=== PATIENT | male | born 1945 | race Caucasian/White ===

== ENCOUNTER 2017-03-30 21:33 | Emergency (ER) | payer MEDICARE ==
--- NOTE | 2017-03-30 22:24 | ED ---
Syncope/Near Syncope - HPI Summary HPI Summary: Patient presents to the ED with CC of feeling unsteady on his feet for approximately 30 minutes. He states he was sitting in a chair watching TV when he fell asleep. He awoke and stood up to go to the kitchen and felt unsteady. He denies any dizziness or light headedness. Denies falling or LOC, hitting his head, memory loss, confusion, pain, [place], visual changes or weakness. He has never had this happen before. + history of diabetes and HTN. Medications include metformin, glipizide, simvastatin and lisinopril. He does not check his sugars regularly, but has been eating excess amounts of food recently. On arrival to the ED, he feels much improved and no longer is c/o unsteady gait. - History Of Current Complaint Hx Obtained From: Patient Onset/Duration: Sudden Onset Timing: Constant Activity At Onset: At Rest Associated Head Trauma: No Aggravating Factor(s): Nothing Alleviating Factor(s): Spontaneous Resolution Associated Signs And Symptoms: Other - gait disturbance - Risk Factors Cardiac Risk Factors: Hypertension, Diabetes, Elevated Lipids Dysrhythmia Risk Factors: Age Greater Than 45, Underlying CAD Risk Factor(s): Negative <Rosalba May - Last Filed: 03/31/17 01:29> <Devin Bryant - Last Filed: 03/31/17 07:04> - History Of Current Complaint Chief Complaint: EDDizziness Time Seen by Provider: 03/30/17 22:11 - Allergies/Home Medications Allergies/Adverse Reactions: Allergies Allergy/AdvReac Type Severity Reaction Status Date / Time No Known Allergies Allergy Verified 03/30/17 21:55 PMH/Surg Hx/FS Hx/Imm Hx Previously Healthy: Yes - Immunization History Date of Influenza Vaccine: 12/2016 Hx Pertussis Vaccination: No Immunizations Up to Date: Unable to Obtain/Confirm Infectious Disease History: No Infectious Disease History: Denies: Traveled Outside the [place] in Last 30 Days - Social History Occupation: Employed Full-time Lives: With Family Alcohol Use: Rare Substance Use Type: Reports: None Smoking Status (MU): Never Smoked Tobacco <Rosalba May - Last Filed: 03/31/17 01:29> Review of Systems Constitutional: Negative Eyes: Negative ENT: Negative Gastrointestinal: Negative Genitourinary: Negative Positive: no symptoms reported, see HPI Musculoskeletal: Negative Neurological: Other - unsteady gait Psychological: Normal All Other Systems Reviewed And Are Negative: Yes <Rosalba May - Last Filed: 03/31/17 01:29> Physical Exam Triage Information Reviewed: Yes Vital Signs On Initial Exam: Initial Vitals Temp Pulse Resp BP Pulse Ox 98.3 F 89 18 182/74 95 03/30/17 21:48 03/30/17 21:48 03/30/17 21:48 03/30/17 21:48 03/30/17 21:48 Vital Signs Reviewed: Yes Appearance: Positive: Well-Appearing, Well-Nourished Skin: Positive: Warm, Skin Color Reflects Adequate Perfusion Head/Face: Positive: Normal Head/Face Inspection Eyes: Positive: EOMI, RAMONA ENT: Positive: Normal ENT inspection Neck: Positive: Supple, No Lymphadenopathy Respiratory/Lung Sounds: Positive: Clear to Auscultation, Breath Sounds Present Cardiovascular: Positive: RRR, Pulses are Symmetrical in both Upper and Lower Extremities Musculoskeletal: Positive: Normal, Strength/ROM Intact Neurological: Positive: Speech Normal Psychiatric: Positive: Normal, Affect/Mood Appropriate AVPU Assessment: Alert <Rosalba May - Last Filed: 03/31/17 01:29> Vital Signs On Initial Exam: Initial Vitals Temp Pulse Resp BP Pulse Ox 36.8 C 89 18 182/74 95 03/30/17 21:48 03/30/17 21:48 03/30/17 21:48 03/30/17 21:48 03/30/17 21:48 <Devin Bryant - Last Filed: 03/31/17 07:04> Diagnostics - Vital Signs Vital Signs Temp Pulse Resp BP Pulse Ox 03/30/17 22:11 87 18 94 03/30/17 22:10 162/75 03/30/17 21:48 98.3 F 89 18 182/74 95 - Laboratory Result Diagrams: 03/30/17 22:38 03/30/17 22:38 Lab Statement: Any lab studies that have been ordered have been reviewed, and results considered in the medical decision making process. <Rosalba May - Last Filed: 03/31/17 01:29> - Vital Signs Vital Signs Temp Pulse Resp BP Pulse Ox 03/31/17 02:00 36.6 C 86 16 164/83 95 03/31/17 01:57 164/83 03/31/17 01:56 82 96 03/31/17 01:30 81 148/84 94 03/31/17 01:00 76 148/74 94 03/31/17 00:30 78 141/72 94 03/31/17 00:01 80 137/75 95 03/31/17 00:00 81 94 03/30/17 23:55 83 95 03/30/17 23:54 154/75 03/30/17 23:30 83 19 177/102 94 03/30/17 23:00 82 18 167/106 94 03/30/17 22:30 83 20 157/79 95 03/30/17 22:11 87 18 94 03/30/17 22:10 162/75 03/30/17 21:48 36.8 C 89 18 182/74 95 - Laboratory Lab Results: Lab Results 03/30/17 03/30/17 03/30/17 Range/Units 22:38 22:38 22:38 WBC 9.0 (3.5-10.8) 10^3/ul RBC 4.57 (4.0-5.4) 10^6/ul Hgb 14.5 (14.0-18.0) g/dl Hct 42 (42-52) % MCV 91 (80-94) fL MCH 32 H (27-31) pg MCHC 35 (31-36) g/dl RDW 13 (10.5-15) % Plt Count 175 (150-450) 10^3/ul MPV 7 L (7.4-10.4) um3 Neut % (Auto) 72.1 (38-83) % Lymph % (Auto) 16.3 L (25-47) % [place] % (Auto) 8.8 (1-9) % Eos % (Auto) 2.0 (0-6) % Baso % (Auto) 0.8 (0-2) % Absolute Neuts (auto) 6.5 (1.5-7.7) 10^3/ul Absolute Lymphs (auto) 1.5 (1.0-4.8) 10^3/ul Absolute Monos (auto) 0.8 (0-0.8) 10^3/ul Absolute Eos (auto) 0.2 (0-0.6) 10^3/ul Absolute Basos (auto) 0.1 (0-0.2) 10^3/ul Absolute Nucleated RBC 0.01 10^3/ul Nucleated RBC % 0.1 INR (Anticoag Therapy) (0.89-1.11) Sodium 131 L (133-145) mmol/L Potassium 3.9 (3.5-5.0) mmol/L Chloride 98 L (101-111) mmol/L Carbon Dioxide 25 (22-32) mmol/L Anion Gap 8 (2-11) mmol/L BUN 19 (6-24) mg/dL Creatinine 0.92 (0.67-1.17) mg/dL Est GFR ( Amer) 103.7 (>60) Est GFR (Non-Af Amer) 80.6 (>60) BUN/Creatinine Ratio 20.7 H (8-20) Glucose 360 H (70-100) mg/dL Lactic Acid 2.5 H* (0.5-2.0) mmol/L Calcium 8.9 (8.6-10.3) mg/dL Magnesium 1.6 L (1.9-2.7) mg/dL Total Bilirubin 0.50 (0.2-1.0) mg/dL AST 19 (13-39) U/L ALT 25 (7-52) U/L Alkaline Phosphatase 54 (34-104) U/L Total Creatine Kinase 85 (10-223) U/L Troponin I 0.00 (<0.04) ng/mL Total Protein 6.8 (6.4-8.9) g/dL Albumin 3.8 (3.2-5.2) g/dL Globulin 3.0 (2-4) g/dL Albumin/Globulin Ratio 1.3 (1-3) TSH 2.15 (0.34-5.60) mcIU/mL Urine Color Urine Appearance Urine pH (5-9) Ur Specific [place] (1.010-1.030) Urine Protein (Negative) Urine Ketones (Negative) Urine Blood (Negative) Urine Nitrate (Negative) Urine Bilirubin (Negative) Urine Urobilinogen (Negative) Ur Leukocyte Esterase (Negative) Urine Glucose (Negative) 03/30/17 03/30/17 Range/Units 22:38 23:52 WBC (3.5-10.8) 10^3/ul RBC (4.0-5.4) 10^6/ul Hgb (14.0-18.0) g/dl Hct (42-52) % MCV (80-94) fL MCH (27-31) pg MCHC (31-36) g/dl RDW (10.5-15) % Plt Count (150-450) 10^3/ul MPV (7.4-10.4) um3 Neut % (Auto) (38-83) % Lymph % (Auto) (25-47) % [place] % (Auto) (1-9) % Eos % (Auto) (0-6) % Baso % (Auto) (0-2) % Absolute Neuts (auto) (1.5-7.7) 10^3/ul Absolute Lymphs (auto) (1.0-4.8) 10^3/ul Absolute Monos (auto) (0-0.8) 10^3/ul Absolute Eos (auto) (0-0.6) 10^3/ul Absolute Basos (auto) (0-0.2) 10^3/ul Absolute Nucleated RBC 10^3/ul Nucleated RBC % INR (Anticoag Therapy) 0.95 (0.89-1.11) Sodium (133-145) mmol/L Potassium (3.5-5.0) mmol/L Chloride (101-111) mmol/L Carbon Dioxide (22-32) mmol/L Anion Gap (2-11) mmol/L BUN (6-24) mg/dL Creatinine (0.67-1.17) mg/dL Est GFR ( Amer) (>60) Est GFR (Non-Af Amer) (>60) BUN/Creatinine Ratio (8-20) Glucose (70-100) mg/dL Lactic Acid (0.5-2.0) mmol/L Calcium (8.6-10.3) mg/dL Magnesium (1.9-2.7) mg/dL Total Bilirubin (0.2-1.0) mg/dL AST (13-39) U/L ALT (7-52) U/L Alkaline Phosphatase (34-104) U/L Total Creatine Kinase (10-223) U/L Troponin I (<0.04) ng/mL Total Protein (6.4-8.9) g/dL Albumin (3.2-5.2) g/dL Globulin (2-4) g/dL Albumin/Globulin Ratio (1-3) TSH (0.34-5.60) mcIU/mL Urine Color Straw Urine Appearance Clear Urine pH 6.0 (5-9) Ur Specific [place] 1.011 (1.010-1.030) Urine Protein Negative (Negative) Urine Ketones Negative (Negative) Urine Blood Negative (Negative) Urine Nitrate Negative (Negative) Urine Bilirubin Negative (Negative) Urine Urobilinogen Negative (Negative) Ur Leukocyte Esterase Negative (Negative) Urine Glucose 3+(>=500 mg/dl) H (Negative) Result Diagrams: 03/30/17 22:38 03/30/17 22:38 Lab Statement: Any lab studies that have been ordered have been reviewed, and results considered in the medical decision making process. <Devin Bryant - Last Filed: 03/31/17 07:04> Course/Dx Course Of Treatment: Labs WNL including Trop. EKG normal. Patient noted to have glucose in the urine and hyperglycemia at 360 with no other acute findings. He is given 2L fluids. He is discharged with reutnr precautions and strongly encouraged to follow up with his PCP. He agrees to this plan. <Rosalba May - Last Filed: 03/31/17 01:29> <Devin Bryant - Last Filed: 03/31/17 07:04> - Diagnoses Provider Diagnoses: Hyperglycemia Discharge <Rosalba May - Last Filed: 03/31/17 01:29> <Devin Bryant - Last Filed: 03/31/17 07:04> - Discharge Plan Condition: Stable Disposition: HOME Patient Education Materials: Diabetic Hyperglycemia (ED) Referrals: Alyson Krishnamurthy MD [Primary Care Provider] - Additional Instructions: Please check your sugars at home Follow up with your PCP MINDY for evaluation and follow up If you develop any worsening or changing symptoms, return to the ED Watch your diet and avoid any sugary or starchy foods.
[2017-03-30 22:56] LABS: ABS Basophils 0.1 10^3/ul (0-0.2); ABS Eosinophils 0.2 10^3/ul (0-0.6); ABS Lymphocytes 1.5 10^3/ul (1.0-4.8); ABS Monocytes 0.8 10^3/ul (0-0.8); ABS Neutrophils 6.5 10^3/ul (1.5-7.7); ABS Nucleated RBC 0.01 10^3/ul; Hematocrit 42 % (42-52); Hemoglobin 14.5 g/dl (14.0-18.0); Lymphocyte % 16.3 % (25-47); Mean Corpuscular HGB Conc 35 g/dl (31-36); Mean Corpuscular Hemoglobin 32 pg (27-31); Mean Corpuscular Volume 91 fL (80-94); Mean Platelet Volume 7 um3 (7.4-10.4); Nucleated Red Blood Cells % 0.1; Platelet Count 175 10^3/ul (150-450); Red Blood Count 4.57 10^6/ul (4.0-5.4); Red Cell Distribution Width 13 % (10.5-15)
[2017-03-30 23:02] LABS: INR 0.95 (0.89-1.11)
[2017-03-30 23:13] LABS: EGFR Non-African American 80.6 (>60)
[2017-03-30] MEDS ORDERED: NS 0.9% 1000 ML* 1,000 ML IV ONE (23:45)
[2017-03-30] MEDS: NS 0.9% 1000 ML* 1,000 ML IV ONE (23:55)
[2017-03-31 00:01] LABS: Urine Appearance Clear; Urine Blood Negative (Negative); Urine Color Straw; Urine Ketones Negative (Negative); Urine Protein Negative (Negative); Urine Specific Gravity 1.011 (1.010-1.030); Urine Urobilinogen Negative (Negative)
[2017-03-31 04:17] VITALS: BP 164/83
== END 2017-03-31 02:00 | disposition home or self-care (01) ==
LOC: ED 21:33
DX: E11.65 Type 2 diabetes mellitus with hyperglycemia (principal); Z86.79 Personal history of other diseases of the circulatory system
CPT/HCPCS: 36415; 80053; 81003; 82550; 83605; 83735; 84443; 84484; 85025; 85610; 93005; 99284

== ENCOUNTER 2018-02-13 10:36 | Emergency (ER) | payer MEDICARE ==
--- NOTE | 2018-02-13 11:36 | ED ---
Adult Trauma - HPI Summary HPI Summary: 72 year old male with past medical history of hypertension presents with back pain after fall today. He states he slipped off a ladder at 12 feet and fell onto his back. He also bumped his head. He denies any loss consciousness. He is not on blood thinners. He admits to some neck pain. He denies any chest pain shortness breath or bowel pain. He has abrasions noted to his left gonzalez and head. He denies any lower extremity pain. No upper extremity pain either. Has not taking anything for her symptoms. Was able to ambulate afterward. patient admits he is little bit dizzy. No change in vision. He states mostly landed on his side. - History of Current Complaint Chief Complaint: EDTraumaMultiple Stated Complaint: FALL/HEAD INJURY/BACK INJURY Time Seen by Provider: 02/13/18 11:23 Pain Intensity: 8 - Allergy/Home Medications Allergies/Adverse Reactions: Allergies Allergy/AdvReac Type Severity Reaction Status Date / Time No Known Allergies Allergy Verified 02/13/18 11:05 PMH/Surg Hx/FS Hx/Imm Hx Endocrine/Hematology History: Denies: Hx Anticoagulant Therapy Cardiovascular History: Reports: Hx Hypertension - Immunization History Date of Influenza Vaccine: 12/2016 Infectious Disease History: No Infectious Disease History: Denies: Traveled Outside the [place] in Last 30 Days - Family History Known Family History: Positive: Hypertension - Social History Alcohol Use: Rare Substance Use Type: Reports: None Smoking Status (MU): Never Smoked Tobacco Review of Systems Negative: Fever Negative: Chest Pain Negative: Shortness Of Breath Positive: Myalgia - back pain All Other Systems Reviewed And Are Negative: Yes Physical Exam Triage Information Reviewed: Yes Vital Signs On Initial Exam: Initial Vitals Temp Pulse Resp BP Pulse Ox 97.7 F 87 16 160/86 96 02/13/18 10:51 02/13/18 10:51 02/13/18 10:51 02/13/18 10:51 02/13/18 10:51 Vital Signs Reviewed: Yes Appearance: Positive: Well-Appearing Skin: Positive: Warm, Dry, Other - abrasion to left leg and head Head/Face: Positive: Normal Head/Face Inspection, Other - abrasion to top of head Eyes: Positive: Normal, Conjunctiva Clear ENT: Positive: Normal ENT inspection, Pharynx normal, TMs normal Neck: Positive: Other: - tenderness neck and upper back Respiratory/Lung Sounds: Positive: Clear to Auscultation, Breath Sounds Present Cardiovascular: Positive: Normal, RRR Abdomen Description: Positive: Nontender, Soft Bowel Sounds: Positive: Present Musculoskeletal: Positive: Strength/ROM Intact - left leg, Limited @ - back, Other - good pulses, nontender left lef Neurological: Positive: Sensory/Motor Intact, Alert, Oriented to Person Place, Time, CN Intact II-III Psychiatric: Positive: Normal - [place] Coma Scale Best Eye Response: 4 - Spontaneous Best Motor Response: 6 - Obeys Commands Best Verbal Response: 5 - Oriented Coma Scale Total: 15 Diagnostics - Vital Signs Vital Signs Temp Pulse Resp BP Pulse Ox 02/13/18 10:51 97.7 F 87 16 160/86 96 - Laboratory Result Diagrams: 02/13/18 11:31 02/13/18 11:31 Lab Statement: Any lab studies that have been ordered have been reviewed, and results considered in the medical decision making process. - CT brain CT Interpretation: No Acute Changes CT Interpretation Completed By: Radiologist cervical CT Interpretation: No Acute Changes - IMPRESSION: No fracture of the cervical spine is noted. 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 There is there is calcification posterior to the spinous process of C5. This may be from old injury. 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 The possibility of ankylosing spondylitis should BE considered. No definite fracture is identified. CT Interpretation Completed By: Radiologist Adult Trauma Course/Dx - Course Course Of Treatment: 72 year old male with past medical history of hypertension presents with back pain after fall today. He states he slipped off a ladder at 12 feet and fell onto his back. He also bumped his head. He denies any loss consciousness. He is not on blood thinners. He admits to some neck pain. He denies any chest pain shortness breath or bowel pain. He has abrasions noted to his left gonzalez and head. He denies any lower extremity pain. No upper extremity pain either. Has not taking anything for her symptoms. Was able to ambulate afterward. patient admits he is little bit dizzy. No change in vision. He states mostly landed on his side. on exam abrasion to head. normal neuro exam. tenderness thoracic back. CT brain normal. cervical neck normal. ct thoracic show no fracture but does shows ankylosis. told to keep abrasions clean. gave concussion precautions. told to follow up with primary. patient understand and agrees with plan. - Diagnoses Differential Diagnosis/HQI/PQRI: Positive: Abrasion(s), Contusion(s), Fracture Provider Diagnoses: Fall, Head injury, Back pain, Abrasions of multiple sites Discharge - Sign-Out/Discharge Documenting (check all that apply): Patient Departure - Discharge Plan Condition: Good Disposition: HOME Patient Education Materials: Head Injury (ED), Back Pain (ED) Referrals: Alyson Krishnamurthy MD [Primary Care Provider] - Additional Instructions: keep abrasions clean, wash with soap and water place ice on the area Take tyenlol every 6 hours as needed for pain Follow up with primary within 5 days Return to ED if develop any new or worsening symptoms - Billing Disposition and Condition Condition: GOOD Disposition: Home
[2018-02-13 11:44] LABS: ABS Basophils 0 10^3/ul (0-0.2); ABS Eosinophils 0.1 10^3/ul (0-0.6); ABS Lymphocytes 1.1 10^3/ul (1.0-4.8); ABS Monocytes 0.9 10^3/ul (0-0.8); ABS Neutrophils 11.2 10^3/ul (1.5-7.7); ABS Nucleated RBC 0 10^3/ul; Eosinophil % 0.4 % (0-6); Hematocrit 45 % (42-52); Hemoglobin 15.7 g/dl (14.0-18.0); Lymphocyte % 8.2 % (25-47); Mean Corpuscular HGB Conc 35 g/dl (31-36); Mean Corpuscular Hemoglobin 32 pg (27-31); Mean Corpuscular Volume 91 fL (80-94); Nucleated Red Blood Cells % 0.2; Platelet Count 207 10^3/ul (150-450); Red Blood Count 4.92 10^6/ul (4.00-5.40); Red Cell Distribution Width 13 % (10.5-15); White Blood Count 13.3 10^3/ul (3.5-10.8)
[2018-02-13 11:51] LABS: INR 1.01 (0.77-1.02)
[2018-02-13 12:15] LABS: EGFR Non-African American 76.6 (>60)
[2018-02-13] MEDS ORDERED: Iohexol 300* (CONTRAST) 10 ML SDV IV ONE (12:27)
[2018-02-13] MEDS ORDERED: Iodixanol 320 (CONTRAST) 100 ML SDV IV ONE (12:53)
--- NOTE | 2018-02-13 13:10 | RAD ---
HISTORY: fall head injury COMPARISONS: None TECHNIQUE: Multiple contiguous axial CT scans were obtained of the head without intravenous contrast. FINDINGS: HEMORRHAGE/INFARCT: There is no hemorrhage or acute infarct. MASSES/SHIFT: There is no mass or shift. EXTRA-AXIAL SPACES: There are no extra-axial fluid collections. SULCI AND VENTRICLES: The sulci and ventricles are normal in size and position for the patient's stated age. CEREBRUM: There are no focal parenchymal abnormalities. BRAINSTEM: There are no focal parenchymal abnormalities. CEREBELLUM: There are no focal parenchymal abnormalities. VESSELS: The vessels are grossly normal. PARANASAL SINUSES: The paranasal sinuses are clear. ORBITS: The orbits are unremarkable. BONES AND SOFT TISSUE: No bone or soft tissue abnormalities are noted. OTHER: None IMPRESSION: NO ACUTE INTRACRANIAL PATHOLOGY.
--- NOTE | 2018-02-13 13:39 | RAD ---
Indication: Fall, head injury. CT of the cervical spine was obtained in the axial plane. Sagittal and coronal reconstructed images were obtained. The skull base demonstrates no fracture. Mastoid air cells are well aerated. The C1 ring is intact. No evidence of fracture is noted. Disc space narrowing at C5-C6 and C6-C7 with dorsal and ventral osteophyte formation is noted. No fractures identified. Minor canal appears to be intact. Lung apices are grossly unremarkable. Posterior to the spinous process C5 there is a calcific density which May represent an old bony fracture. This is likely due to old injury. IMPRESSION: No fracture of the cervical spine is noted. 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 There is there is calcification posterior to the spinous process of C5. This may be from old injury.
--- NOTE | 2018-02-13 13:45 | RAD ---
INDICATION: Trauma, low back pain. COMPARISON: There are no relevant prior studies available for comparison. TECHNIQUE: Contiguous axial sections were obtained beginning above the T11 vertebra and continuing through the L5-S1 disc space. Images were reconstructed in the sagittal and coronal planes. FINDINGS: VERTEBRA: The vertebra are in normal alignment. No fracture is seen. There is congenital spinal canal narrowing. L1-L2: There is endplate spurring associated with a mild broad-based disc bulge and mild hypertrophic changes within the facet joints. There is mild spinal canal narrowing and mild bilateral neural foraminal narrowing. L2-L3: There is a mild broad-based disc bulge and mild hypertrophic changes within the facet joints. There is mild to moderate spinal canal narrowing and mild to moderate bilateral neural foraminal narrowing. L3-L4: There is a moderate broad-based disc bulge and moderate hypertrophic changes within the facet joints. There is severe spinal canal narrowing and moderate bilateral neural foraminal narrowing. L4-L5: There is a mild broad-based disc bulge and moderate hypertrophic changes within the facet joints. There is moderate spinal canal narrowing and moderate bilateral neural foraminal narrowing. L5-S1: There is a mild broad-based disc bulge and moderate hypertrophic changes within the facet joints. No significant spinal canal narrowing is present. There is moderate bilateral neural foraminal narrowing left greater than right. Incidental note is made of May bilateral renal cysts. IMPRESSION: 1. NO EVIDENCE FOR FRACTURE. 2. SEVERE LUMBAR SPONDYLOSIS DESCRIBED.
--- NOTE | 2018-02-13 13:48 | RAD ---
Indication: Back pain. Fall, back injury. CT of the thoracic spine was obtained in the axial plane. Sagittal and coronal reconstructed images were obtained. The vertebral bodies appear normal in height. No compression fracture is noted. At T1-T2 and T2-T3 the disc spaces all well-preserved. No compression is noted. From T3 through T11 there are anterior bridging syndesmophytes throughout the thoracic spine. The vertebral bodies appear to have a bamboo spine appearance. The possibility of ankylosing spondylitis should BE considered. Spinous processes are noted. There is ankylosis of the spinous processes as well. 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 The possibility of ankylosing spondylitis should BE considered. No definite fracture is identified.
--- NOTE | 2018-02-13 13:53 | RAD ---
HISTORY: fall, trauma, neck and upper back pain COMPARISONS: None TECHNIQUE: Multiple contiguous axial CT scans were obtained of the chest, abdomen, and pelvis after the administration of intravenous contrast. Coronal and sagittal multiplanar reformations are submitted for review.. Oral contrast was not administered. Delayed images were obtained through the abdomen and pelvis. FINDINGS: CHEST NECK AND THYROID: The lower neck and thyroid are unremarkable. CHEST WALL: There is no lower cervical, axillary, or supraclavicular lymphadenopathy by size criteria. HEART AND PERICARDIUM: The heart is unremarkable. AORTA AND PULMONARY VASCULATURE: The aorta and pulmonary vasculature are normal. MEDIASTINUM: There is no mediastinal lymphadenopathy by size criteria. CAM: There is no hilar lymphadenopathy by size criteria. AIRWAY AND ESOPHAGUS: The airway is unremarkable, without endobronchial filling defect. The esophagus is grossly normal. LUNG PARENCHYMA: The lungs are clear. PLEURA: No pleural abnormalities are noted. BONES AND SOFT TISSUES: There is ossification of the anterior syndesmophytes. ABDOMEN/PELVIS: LIVER: The liver is normal in shape, size, contour, and attenuation. BILE DUCTS: There is no intrahepatic or extrahepatic biliary dilatation. GALLBLADDER: The gallbladder is normal, without pericholecystic inflammatory change. PANCREAS: The pancreas is normal, without mass or ductal dilatation. SPLEEN: Normal in size and appearance. UPPER GI TRACT: Evaluation of the gastrointestinal tract is limited by incomplete gastric distention. The upper GI tract is unremarkable. SMALL BOWEL & MESENTERY: The small bowel is normal in contour, course, and caliber. There is no obstruction or dilatation. COLON: There are few, scattered diverticula of the distal colon. There is no pericolonic inflammatory change. ADRENALS: Normal bilaterally. KIDNEYS: Simple left renal cysts are noted. There is no hydronephrosis or nephrolithiasis. BLADDER: The bladder is smooth in contour. PELVIC ORGANS: The prostate gland is normal. The seminal vesicles are symmetric. AORTA: There is calcific atherosclerotic disease of the abdominal aorta and its branches, without aneurysmal dilatation IVC: Unremarkable LYMPH NODES: There is no lymphadenopathy by size criteria. ABDOMINAL WALL: There is no evidence for abdominal wall hernia. BONES AND SOFT TISSUES: There is ossification of the anterior syndesmophytes along the lower thoracic spine. There are bridging marginal osteophytes. There is facet osteoarthritis. OTHER: There is no free intraperitoneal fluid or free intraperitoneal gas. There is no active arterial extravasation. IMPRESSION: 1. FINDINGS SUGGESTIVE OF ANKYLOSING SPONDYLITIS. 2. FEW, SCATTERED SCATTERED DIVERTICULA OF THE DISTAL COLON. 3. ATHEROSCLEROSIS. 4. NO ACUTE CT PATHOLOGY OF THE VISUALIZED CHEST, ABDOMEN, OR PELVIS.
[2018-02-13 14:40] VITALS: BP 133/82
== END 2018-02-13 14:39 | disposition home or self-care (01) ==
LOC: ED 10:36
DX: S09.90XA Unspecified injury of head, initial encounter (principal); T14.8XXA Other injury of unspecified body region, initial encounter; I10 Essential (primary) hypertension; M54.9 Dorsalgia, unspecified; W19.XXXA Unspecified fall, initial encounter; Y92.9 Unspecified place or not applicable
CPT/HCPCS: 36415; 70450; 71260; 72125; 72128; 72131; 74177; 80053; 85025; 85610; 99284; Q9967

== ENCOUNTER 2018-03-18 08:53 | Emergency (ER) | payer MEDICARE ==
--- NOTE | 2018-03-18 09:50 | ED ---
Lower Extremity - HPI Summary HPI Summary: 72-year-old male presents with left ankle injury yesterday. He states he twisted his ankle and fell walking down a hill a she slipped on the ice. He states he landed on his left hip. Full range of motion is left hip. He is is able to ambulate. No numbness or tingling. No previous fracture to the area. Has history of diabetes and high blood pressure. He states the areas of his left lateral has been swelling. Denies any knee or foot pain. no head injury or LOC. was a mechanical fall. - History of Current Complaint Chief Complaint: EDExtremityLower Stated Complaint: LEFT ANKLE PAIN Time Seen by Provider: 03/18/18 09:06 Pain Intensity: 7 - Allergies/Home Medications Allergies/Adverse Reactions: Allergies Allergy/AdvReac Type Severity Reaction Status Date / Time No Known Allergies Allergy Verified 02/13/18 11:05 Home Medications: Home Medications Lisinopril/HCTZ 20/12.5(NF) [Zestoretic 20/12.5(NF)] 2 tab PO DAILY 03/18/18 [ History Confirmed 03/18/18] glipiZIDE [Glipizide ER] 1 tab PO SEE INSTRUCTIONS 03/18/18 [History Confirmed 03/18/18] metFORMIN* [Glucophage 1000 MG TAB *] 1,000 mg PO BID 03/18/18 [History Confirmed 03/18/18] PMH/Surg Hx/FS Hx/Imm Hx Endocrine/Hematology History: Denies: Hx Anticoagulant Therapy, Hx Diabetes Cardiovascular History: Reports: Hx Hypertension - Immunization History Date of Influenza Vaccine: 12/2016 Infectious Disease History: No Infectious Disease History: Denies: Traveled Outside the [place] in Last 30 Days - Family History Known Family History: Positive: Hypertension - Social History Alcohol Use: Rare Substance Use Type: Reports: None Smoking Status (MU): Never Smoked Tobacco Review of Systems Negative: Fever Negative: Chest Pain Negative: Shortness Of Breath Positive: Myalgia - left ankle pain All Other Systems Reviewed And Are Negative: Yes Physical Exam Triage Information Reviewed: Yes Vital Signs On Initial Exam: Initial Vitals Temp Pulse Resp BP Pulse Ox 98.4 F 101 20 138/88 95 03/18/18 09:02 03/18/18 09:02 03/18/18 09:02 03/18/18 09:02 03/18/18 09:02 Vital Signs Reviewed: Yes Appearance: Positive: Well-Appearing Skin: Positive: Warm, Dry Head/Face: Positive: Normal Head/Face Inspection Eyes: Positive: Normal, Conjunctiva Clear ENT: Positive: Pharynx normal Respiratory/Lung Sounds: Positive: Clear to Auscultation, Breath Sounds Present Cardiovascular: Positive: Normal, RRR Musculoskeletal: Positive: Strength/ROM Intact - left ankle, Edema Left - lateral malleolus, Other - good pulses, capillary refill<2 secs Neurological: Positive: Normal Psychiatric: Positive: Normal Diagnostics - Vital Signs Vital Signs Temp Pulse Resp BP Pulse Ox 03/18/18 09:02 98.4 F 101 20 138/88 95 - Laboratory Lab Statement: Any lab studies that have been ordered have been reviewed, and results considered in the medical decision making process. - Radiology ankle Radiology Interpretation Completed By: Radiologist Summary of Radiographic Findings: IMPRESSION: #. Nondisplaced Cole type B lateral malleolus fracture. Lower Extremity Course/Dx - Course Course Of Treatment: 72-year-old male presents with left ankle injury yesterday. He states he twisted his ankle and fell walking down a hill a she slipped on the ice. He states he landed on his left hip. Full range of motion is left hip. He is is able to ambulate. No numbness or tingling. No previous fracture to the area. Has history of diabetes and high blood pressure. He states the areas of his left lateral has been swelling. Denies any knee or foot pain. no head injury or LOC. was a mechanical fall. on exam has tenderness lateral mallolus left ankle. Neurovascular intact. X-ray shows a fibula fracture. Discussed will placed in a cam walking boot. Told to follow-up with orthopedic. Told to treat with lay. Patient understands agrees the plan. - Diagnoses Differential Diagnosis/HQI/PQRI: Positive: Fracture (Closed), Sprain, Strain Provider Diagnoses: Left fibular fracture Discharge - Sign-Out/Discharge Documenting (check all that apply): Patient Departure - Discharge Plan Condition: Good Disposition: HOME Patient Education Materials: Ankle Fracture (ED) Referrals: David Salazar MD [Medical Doctor] - Alyson Krishnamurthy MD [Primary Care Provider] - Additional Instructions: Stay off ankle as much as possible Ice, elevate, keep boot on area tyenlol every 6 hours for pain Follow up with ortho Return to ED if develop or any new or worsening symptoms - Billing Disposition and Condition Condition: GOOD Disposition: Home
[2018-03-18 10:52] VITALS: BP 134/87
== END 2018-03-18 11:03 | disposition home or self-care (01) ==
LOC: ED 08:53
DX: S82.65XA Nondisplaced fracture of lateral malleolus of left fibula, initial encounter for closed fracture (principal); W00.0XXA Fall on same level due to ice and snow, initial encounter; Y93.01 Activity, walking, marching and hiking; Y92.9 Unspecified place or not applicable; E11.9 Type 2 diabetes mellitus without complications; I10 Essential (primary) hypertension; Z79.84 Long term (current) use of oral hypoglycemic drugs
CPT/HCPCS: 99282

== ENCOUNTER 2022-02-22 13:54 | Inpatient (IN) ==
[2022-02-22] MEDS ORDERED: Lactated Ringers 1000 ml BAG 1,000 ML IV ONE (14:00)
[2022-02-22] MEDS ORDERED: Iodixanol (CONTRAST) 320 MG/ML 100 ML SDV IV ONE (14:18)
[2022-02-22 14:42] LABS: ABS Lymphocytes 0.9 10^3/ul (1.0-4.8); ABS Monocytes 0.5 10^3/ul (0-0.8); Eosinophil % 0.6 %; Hematocrit 35 % (42-52); Hemoglobin 11.9 g/dL (14.0-18.0); Mean Corpuscular HGB Conc 34 g/dL (31-36); Mean Corpuscular Hemoglobin 33 pg (27-31); Mean Corpuscular Volume 96 fL (80-94); Mean Platelet Volume 6.7 fL (7.4-10.4); Platelet Count 149 10^3/uL (150-450); Red Blood Count 3.64 10^6 /uL (4.18-5.48); Red Cell Distribution Width 13 % (10-15); White Blood Count 6.4 10^3/uL (3.5-10.8)
[2022-02-22 14:58] LABS: INR 1.27 (0.89-1.11)
[2022-02-22 15:48] LABS: ALT 22 U/L (7-52); AST 17 U/L (13-39); Acetaminophen < 15 mcg/mL; Albumin 2.9 g/dL (3.2-5.2); Albumin/Globulin Ratio 1.6 (1-3); Alcohol, S < 13 mg/dL (<13); Alkaline Phosphatase 45 U/L (35-149); Anion Gap 6 mmol/L (2-11); Blood Urea Nitrogen 14 mg/dL (6-24); C Reactive Protein < 1.00 mg/L (<8.01); CO2 Carbon Dioxide 25 mmol/L (22-32); Calcium 7.6 mg/dL (8.6-10.3); Chloride 105 mmol/L (101-111); Globulin 1.8 g/dL (2-4); Glucose 100 mg/dL (70-100); Potassium 3.4 mmol/L (3.5-5.0); Sodium 136 mmol/L (135-145); Total Protein 4.7 g/dL (6.4-8.9); eGFR CKD-EPI 97.4 (>60)
[2022-02-22 18:13] LABS: Folate 9.89 ng/mL (5.90-24.80)
[2022-02-22 18:14] LABS: Vitamin B12 158 pg/mL (180-914)
[2022-02-22 18:18] LABS: Magnesium 1.6 mg/dL (1.9-2.7)
[2022-02-22] MEDS ORDERED: Cyanocobalamin INJ 1,000 MCG/ML VIAL 1 ML VIAL IM ONE (18:26)
[2022-02-22] MEDS ORDERED: Magnesium Sulfate 2 gm BAG 2 GM/50 ML BAG IVPB ONE (18:26)
[2022-02-22] MEDS ORDERED: Dextrose 50% Syringe 50 ml 25 GM/50 ML SYRINGE IV PUSH PRN (22:05)
[2022-02-22] MEDS: KCL 20 MEQ/100 ML IVPREMIX 20 MEQ/100 ML BAG IV SCH (22:49)
[2022-02-23] MEDS: KCL 20 MEQ/100 ML IVPREMIX 20 MEQ/100 ML BAG IV SCH (00:58)
[2022-02-23 04:52] LABS: Calcium 8.4 mg/dL (8.6-10.3); Magnesium 2.1 mg/dL (1.9-2.7); Potassium 4.3 mmol/L (3.5-5.0); eGFR CKD-EPI 92.7 (>60)
[2022-02-23] MEDS ORDERED: Heparin 5000 UNITS/ML 1 mL VIAL SUBCUT SCH ×3 (06:00→22:00)
[2022-02-23] MEDS: Cyanocobalamin INJ 1,000 MCG/ML VIAL 1 ML VIAL IM SCH (09:08)
[2022-02-23] MEDS: Polyethylene Glycol 3350 17 GM PACKET PO SCH (11:49)
[2022-02-23] MEDS: Acetaminophen IV 1 GM/100ML 1,000 MG/100 ML BAG IV SCH ×2 (12:39→19:42)
[2022-02-24] MEDS: Acetaminophen IV 1 GM/100ML 1,000 MG/100 ML BAG IV SCH (00:52)
[2022-02-24 06:13] LABS: ABS Lymphocytes 0.7 10^3/ul (1.0-4.8); ABS Monocytes 0.7 10^3/ul (0-0.8); ABS Neutrophils 8.1 10^3/ul (1.5-7.7); Eosinophil % 0.2 %; Hematocrit 42 % (42-52); Hemoglobin 14.3 g/dL (14.0-18.0); Lymphocyte % 6.9 %; Mean Corpuscular HGB Conc 34 g/dL (31-36); Mean Corpuscular Hemoglobin 33 pg (27-31); Mean Corpuscular Volume 96 fL (80-94); Mean Platelet Volume 7.5 fL (7.4-10.4); Platelet Count 170 10^3/uL (150-450); Red Blood Count 4.32 10^6 /uL (4.18-5.48); Red Cell Distribution Width 13 % (10-15); White Blood Count 9.5 10^3/uL (3.5-10.8)
[2022-02-24 06:35] LABS: Calcium 8.5 mg/dL (8.6-10.3); Magnesium 2.1 mg/dL (1.9-2.7); Potassium 4.3 mmol/L (3.5-5.0)
[2022-02-24] MEDS: Cyanocobalamin INJ 1,000 MCG/ML VIAL 1 ML VIAL IM SCH (09:51)
[2022-02-24] MEDS: Polyethylene Glycol 3350 17 GM PACKET PO SCH (09:51)
[2022-02-24] MEDS ORDERED: Lactated Ringers 1000 ml BAG 500 ML IV ONE (10:23)
[2022-02-24] MEDS ORDERED: Lactated Ringers 1000 ml BAG 1,000 ML IV ONE (17:00)
[2022-02-25 00:19] LABS: Urine Appearance Clear; Urine Bilirubin Negative (Negative); Urine Blood 2+ (Negative); Urine Color Yellow; Urine Glucose Negative (Negative); Urine Ketones Negative (Negative); Urine Nitrite Negative (Negative); Urine Protein Negative (Negative); Urine Specific Gravity 1.019 (1.002-1.030); Urine Urobilinogen Positive (Negative)
[2022-02-25 00:24] LABS: Urine Bacteria Absent (Absent); Urine Red Blood Cell 3+(>10/hpf) (Absent); Urine White Blood Cell Trace(0-5/hpf) (Absent)
[2022-02-25 06:52] LABS: Calcium 8.2 mg/dL (8.6-10.3); Magnesium 1.9 mg/dL (1.9-2.7); Potassium 4.2 mmol/L (3.5-5.0); eGFR CKD-EPI 93.5 (>60)
[2022-02-25] MEDS ORDERED: Magnesium Sulfate IV 1GM/100ML 1 GM/100 ML BAG IV ONE (08:00)
[2022-02-25] MEDS: Polyethylene Glycol 3350 17 GM PACKET PO SCH (11:12)
[2022-02-25] MEDS: Enoxaparin 40 MG/0.4 ML SYR SUBCUT SCH (11:12)
[2022-02-25] MEDS: Cyanocobalamin INJ 1,000 MCG/ML VIAL 1 ML VIAL IM SCH (11:13)
[2022-02-26] MEDS: Cyanocobalamin INJ 1,000 MCG/ML VIAL 1 ML VIAL IM SCH (09:50)
[2022-02-26] MEDS: Polyethylene Glycol 3350 17 GM PACKET PO SCH (09:50)
[2022-02-26] MEDS: Enoxaparin 40 MG/0.4 ML SYR SUBCUT SCH (13:07)
[2022-02-27] MEDS ORDERED: Furosemide 40 mg/4 ml IV VIAL ONE ×2 (08:33→13:47)
[2022-02-27] MEDS ORDERED: Furosemide 40 mg/4 ml IV VIAL IV ONE ×2 (08:50→13:54)
[2022-02-27] MEDS: Cyanocobalamin INJ 1,000 MCG/ML VIAL 1 ML VIAL IM SCH (10:30)
[2022-02-27] MEDS: Polyethylene Glycol 3350 17 GM PACKET PO SCH (10:31)
[2022-02-27] MEDS: Enoxaparin 40 MG/0.4 ML SYR SUBCUT SCH (10:31)
[2022-02-27] MEDS ORDERED: Succinylcholine 200 mg VIAL 20 mg/ml 10 ml VIAL (200 mg) ONE (14:10)
[2022-02-27] MEDS ORDERED: Etomidate 40 mg/20 ml (2 MG/ML) 20 ml VIAL (40 mg) ONE (14:14)
[2022-02-27] MEDS ORDERED: fentaNYL 250 mcg/5 ml 50 MCG/ML 5 ml VIAL (250 MCG) ONE (14:14)
[2022-02-27] MEDS ORDERED: Propofol 10 mg/ml 100 ML BTL 100 ML ONE (14:16)
[2022-02-27] MEDS ORDERED: Norepinephrine 16MCG/ML BAGD5W 4,000 MCG/250 ML BAG IV ONE (14:17)
[2022-02-27] MEDS: Norepinephrine 16MCG/ML BAGD5W 4,000 MCG/250 ML BAG IV SCH (14:20)
[2022-02-27] MEDS: Propofol 10 mg/ml 100 ML BTL 100 ML IV SCH ×2 (14:30→21:39)
[2022-02-27 14:43] LABS: ABS Lymphocytes 0.3 10^3/ul (1.0-4.8); ABS Neutrophils 10.8 10^3/ul (1.5-7.7); Hematocrit 47 % (42-52); Lymphocyte % 2.5 %; Mean Corpuscular HGB Conc 34 g/dL (31-36); Mean Corpuscular Hemoglobin 33 pg (27-31); Mean Corpuscular Volume 96 fL (80-94); Mean Platelet Volume 7.3 fL (7.4-10.4); Platelet Count 206 10^3/uL (150-450); Red Blood Count 4.83 10^6 /uL (4.18-5.48); Red Cell Distribution Width 13 % (10-15); White Blood Count 12.1 10^3/uL (3.5-10.8)
[2022-02-27] MEDS: Pantoprazole VIAL 40 MG VIAL IV SCH (15:04)
[2022-02-27 15:07] LABS: Albumin 3.2 g/dL (3.2-5.2); Albumin/Globulin Ratio 1.3 (1-3); Calcium 8.1 mg/dL (8.6-10.3); Globulin 2.4 g/dL (2-4); Total Bilirubin 1.3 mg/dL (0.2-1.0); Total Protein 5.6 g/dL (6.4-8.9); eGFR CKD-EPI 92.4 (>60)
[2022-02-27 15:30] LABS: Potassium 3.9 mmol/L (3.5-5.0)
[2022-02-27 15:35] LABS: PCO2 Arterial 43 mmHg (35-45); PO2 Arterial 75 mmHg (80-100)
[2022-02-27] MEDS: Chlorhexidine MOUTHWASH 0.12% 15 ML UDC SWISH SPIT SCH ×2 (17:58→20:33)
[2022-02-27] MEDS ORDERED: KCL 10 MEQ/50 ML IVPREMIX 10 MEQ/50 ML BAG IV ONE (19:36)
[2022-02-27] MEDS: Docusate LIQ 100 MG/10 ML UDC PO SCH (22:35)
[2022-02-27] MEDS ORDERED: Dextrose 50% Syringe 50 ml 25 GM/50 ML SYRINGE IV PUSH PRN (23:37)
[2022-02-28] MEDS: Chlorhexidine MOUTHWASH 0.12% 15 ML UDC SWISH SPIT SCH ×5 (04:01→17:16)
[2022-02-28] MEDS: Acetaminophen IV 1 GM/100ML 1,000 MG/100 ML BAG IV PRN ×2 (04:06→14:47)
[2022-02-28 05:51] LABS: ABS Lymphocytes 0.7 10^3/ul (1.0-4.8); ABS Neutrophils 13.4 10^3/ul (1.5-7.7); Hematocrit 47 % (42-52); Hemoglobin 16.1 g/dL (14.0-18.0); Lymphocyte % 4.8 %; Mean Corpuscular HGB Conc 34 g/dL (31-36); Mean Corpuscular Hemoglobin 33 pg (27-31); Mean Corpuscular Volume 96 fL (80-94); Mean Platelet Volume 7.5 fL (7.4-10.4); Nucleated Red Blood Cells % 0.2; Platelet Count 223 10^3/uL (150-450); Red Cell Distribution Width 13 % (10-15); White Blood Count 15.2 10^3/uL (3.5-10.8)
[2022-02-28 06:22] LABS: Blood Urea Nitrogen 44 mg/dL (6-24); CO2 Carbon Dioxide 23 mmol/L (22-32); Calcium 8.3 mg/dL (8.6-10.3); Chloride 97 mmol/L (101-111); Glucose 175 mg/dL (70-100); Magnesium 2.1 mg/dL (1.9-2.7); Sodium 131 mmol/L (135-145); eGFR CKD-EPI 73.5 (>60)
[2022-02-28 06:32] LABS: Anion Gap 11 mmol/L (2-11)
[2022-02-28] MEDS: Propofol 10 mg/ml 100 ML BTL 100 ML IV SCH ×3 (06:45→21:35)
[2022-02-28 06:53] LABS: Potassium, Whole Blood 4.6 mmol/L (3.4-4.5)
[2022-02-28] MEDS: Polyethylene Glycol 3350 17 GM PACKET NG TUBE SCH (08:20)
[2022-02-28] MEDS: Docusate LIQ 100 MG/10 ML UDC PO SCH (09:17)
[2022-02-28] MEDS: Enoxaparin 40 MG/0.4 ML SYR SUBCUT SCH (09:50)
[2022-02-28] MEDS: Lactated Ringers 1000 ml BAG 1,000 ML IV SCH (10:32)
[2022-02-28] MEDS: Pantoprazole VIAL 40 MG VIAL IV SCH (13:46)
[2022-02-28] MEDS: Norepinephrine 16MCG/ML BAGD5W 4,000 MCG/250 ML BAG IV SCH (21:35)
[2022-03-01] MEDS: Lactated Ringers 1000 ml BAG 1,000 ML IV SCH
[2022-03-01] MEDS: Chlorhexidine MOUTHWASH 0.12% 15 ML UDC SWISH SPIT SCH ×7 (01:37→21:47)
[2022-03-01] MEDS: Docusate LIQ 100 MG/10 ML UDC PO SCH ×3 (01:45→21:47)
[2022-03-01] MEDS: Enoxaparin 80 MG/0.8 ML SYR SUBCUT SCH ×3 (01:50→21:47)
[2022-03-01] MEDS: Propofol 10 mg/ml 100 ML BTL 100 ML IV SCH (04:14)
[2022-03-01] MEDS: Acetaminophen IV 1 GM/100ML 1,000 MG/100 ML BAG IV PRN (04:17)
[2022-03-01 05:30] LABS: ABS Lymphocytes 0.5 10^3/ul (1.0-4.8); ABS Monocytes 0.7 10^3/ul (0-0.8); ABS Neutrophils 7.5 10^3/ul (1.5-7.7); Hematocrit 45 % (42-52); Hemoglobin 15.5 g/dL (14.0-18.0); Lymphocyte % 6.1 %; Mean Corpuscular HGB Conc 35 g/dL (31-36); Mean Corpuscular Hemoglobin 34 pg (27-31); Mean Corpuscular Volume 98 fL (80-94); Mean Platelet Volume 8.5 fL (7.4-10.4); Platelet Count 161 10^3/uL (150-450); Red Blood Count 4.58 10^6 /uL (4.18-5.48); Red Cell Distribution Width 13 % (10-15); White Blood Count 8.8 10^3/uL (3.5-10.8)
[2022-03-01 05:46] LABS: Blood Urea Nitrogen 42 mg/dL (6-24); CO2 Carbon Dioxide 26 mmol/L (22-32); Calcium 7.8 mg/dL (8.6-10.3); Chloride 98 mmol/L (101-111); Glucose 141 mg/dL (70-100); Sodium 127 mmol/L (135-145); eGFR CKD-EPI 94.3 (>60)
[2022-03-01 05:54] LABS: Anion Gap 3 mmol/L (2-11)
[2022-03-01 06:55] LABS: Magnesium 2.3 mg/dL (1.9-2.7)
[2022-03-01 07:46] LABS: Potassium, Whole Blood 4.8 mmol/L (3.4-4.5)
[2022-03-01] MEDS: Polyethylene Glycol 3350 17 GM PACKET NG TUBE SCH (09:03)
[2022-03-01] MEDS ORDERED: Furosemide 40 mg/4 ml IV VIAL IV ONE (09:51)
[2022-03-01 10:19] LABS: Osmolality Serum 291 mOsm/kg (275-295)
[2022-03-01 13:25] LABS: PCO2 Arterial 43 mmHg (35-45); PO2 Arterial 62 mmHg (80-100)
[2022-03-01] MEDS: Pantoprazole VIAL 40 MG VIAL IV SCH (14:23)
[2022-03-01 15:38] LABS: PO2 Arterial 66 mmHg (80-100)
[2022-03-01 15:43] LABS: PCO2 Arterial 74 mmHg (35-45)
[2022-03-01 20:39] LABS: PCO2 Arterial 49 mmHg (35-45); PO2 Arterial 84 mmHg (80-100)
[2022-03-01] MEDS: Dexamethasone IV 4 MG/ML VIAL 1 ml VIAL IV SLOW PU SCH (21:51)
[2022-03-02] MEDS: Dexamethasone IV 4 MG/ML VIAL 1 ml VIAL IV SLOW PU SCH ×5 (01:43→22:54)
[2022-03-02] MEDS: Chlorhexidine MOUTHWASH 0.12% 15 ML UDC SWISH SPIT SCH ×4 (01:44→14:00)
[2022-03-02 04:53] LABS: ABS Lymphocytes 0.2 10^3/ul (1.0-4.8); ABS Monocytes 0.4 10^3/ul (0-0.8); ABS Neutrophils 6.1 10^3/ul (1.5-7.7); Eosinophil % 0.1 %; Hematocrit 44 % (42-52); Hemoglobin 14.8 g/dL (14.0-18.0); Lymphocyte % 2.6 %; Mean Corpuscular HGB Conc 34 g/dL (31-36); Mean Corpuscular Hemoglobin 33 pg (27-31); Mean Corpuscular Volume 96 fL (80-94); Mean Platelet Volume 8.1 fL (7.4-10.4); Platelet Count 154 10^3/uL (150-450); Red Blood Count 4.51 10^6 /uL (4.18-5.48); Red Cell Distribution Width 13 % (10-15); White Blood Count 6.6 10^3/uL (3.5-10.8)
[2022-03-02 06:51] LABS: Blood Urea Nitrogen 42 mg/dL (6-24); CO2 Carbon Dioxide 26 mmol/L (22-32); Calcium 8.1 mg/dL (8.6-10.3); Chloride 99 mmol/L (101-111); Glucose 159 mg/dL (70-100); Magnesium 2.2 mg/dL (1.9-2.7); Sodium 136 mmol/L (135-145); eGFR CKD-EPI 97.8 (>60)
[2022-03-02 06:59] LABS: Anion Gap 11 mmol/L (2-11)
[2022-03-02] MEDS: Docusate LIQ 100 MG/10 ML UDC PO SCH ×2 (08:43→22:50)
[2022-03-02] MEDS: Enoxaparin 80 MG/0.8 ML SYR SUBCUT SCH ×2 (08:43→22:55)
[2022-03-02] MEDS: Polyethylene Glycol 3350 17 GM PACKET NG TUBE SCH ×2 (08:44→09:08)
[2022-03-02] MEDS ORDERED: Benzocaine/Menthol LOZ PO PRN (08:49)
[2022-03-02] MEDS: Acetaminophen IV 1 GM/100ML 1,000 MG/100 ML BAG IV PRN (11:21)
[2022-03-02 14:26] LABS: PCO2 Arterial 49 mmHg (35-45); PO2 Arterial 123 mmHg (80-100)
[2022-03-02] MEDS: Pantoprazole VIAL 40 MG VIAL IV SCH (15:49)
[2022-03-03] MEDS: Acetaminophen IV 1 GM/100ML 1,000 MG/100 ML BAG IV PRN (01:34)
[2022-03-03 05:18] LABS: ABS Lymphocytes 0.2 10^3/ul (1.0-4.8); ABS Monocytes 0.7 10^3/ul (0-0.8); ABS Neutrophils 5.5 10^3/ul (1.5-7.7); Hematocrit 42 % (42-52); Hemoglobin 14.6 g/dL (14.0-18.0); Mean Corpuscular HGB Conc 35 g/dL (31-36); Mean Corpuscular Hemoglobin 33 pg (27-31); Mean Corpuscular Volume 97 fL (80-94); Mean Platelet Volume 7.7 fL (7.4-10.4); Platelet Count 172 10^3/uL (150-450); Red Blood Count 4.37 10^6 /uL (4.18-5.48); Red Cell Distribution Width 13 % (10-15); White Blood Count 6.4 10^3/uL (3.5-10.8)
[2022-03-03 05:32] LABS: Activated Partial Thrombo Time 30.5 seconds (26.0-38.0); INR 1.21 (0.89-1.11)
[2022-03-03] MEDS: Dexamethasone IV 4 MG/ML VIAL 1 ml VIAL IV SLOW PU SCH ×3 (05:39→18:00)
[2022-03-03 05:47] LABS: Albumin 2.7 g/dL (3.2-5.2); Albumin/Globulin Ratio 1.1 (1-3); Calcium 8.3 mg/dL (8.6-10.3); Globulin 2.5 g/dL (2-4); Magnesium 2.2 mg/dL (1.9-2.7); Potassium 4.8 mmol/L (3.5-5.0); Total Bilirubin 0.7 mg/dL (0.2-1.0); Total Protein 5.2 g/dL (6.4-8.9); eGFR CKD-EPI 98.8 (>60)
[2022-03-03] MEDS: Docusate LIQ 100 MG/10 ML UDC PO SCH (10:01)
[2022-03-03] MEDS: Enoxaparin 80 MG/0.8 ML SYR SUBCUT SCH (10:42)
[2022-03-03] MEDS: Pantoprazole VIAL 40 MG VIAL IV SCH (15:16)
[2022-03-03 18:16] VITALS: BP 97/63
[2022-03-03] MEDS ORDERED: Piperacillin/Tazobac ADVAN 3.375 GM in NS 0.9% 100 ml BAG 100 ML IV ONE (19:02)
[2022-03-03] MEDS ORDERED: Zosyn per Pharmacy NOTE FOLLOW UP SCH (20:00)
[2022-03-05] MEDS ORDERED: Cyanocobalamin INJ 1,000 MCG/ML VIAL 1 ML VIAL IM SCH (11:00)
== END 2022-03-03 19:15 | disposition short-term general hospital (02) | DRG 52 ==
LOC: ED 13:54 → EDHOLD 22:20 → SUATTDRO 22:20 → EDHOLD 02-23 07:34 → MEDTELE 02-23 17:41 → ICU 02-27 14:51
PROVIDERS: ADMIT Internal Medicine; ATTEND Internal Medicine